=== PATIENT | female | born 1965 | race Caucasian/White ===

== ENCOUNTER 2021-04-20 11:43 | Emergency (ER) | payer OTHER, MEDICAID ==
[~2021-04-20] VITALS: Ht 165.1 cm; Wt 84.8 kg
[2021-04-20] MEDS ORDERED: TIZANIDINE HCL2 M1 PO (11:54)
[2021-04-20] MEDS ORDERED: DESYREL150 MG PO (11:54)
[2021-04-20] MEDS ORDERED: BENADRYL25 MG PO (11:55)
[2021-04-20] MEDS ORDERED: MEDICAL MARIJUANA (11:55)
[2021-04-20] MEDS ORDERED: CLARITIN10 M3 PO (11:55)
[2021-04-20 13:16] VITALS: BP 145/83
[2021-04-20 13:26] LABS: AMP/METHAMP Negative (Negative); BARBITURATES Negative (Negative); BENZODIAZEPINES Negative (Negative); COCAINE Negative (Negative); METHADONE Negative (Negative); OPIATES Negative (Negative); PCP Negative (Negative); THC POSITIVE (Negative)
== END 2021-04-20 13:16 | disposition left against medical advice (07) ==
LOC: M.ERS 11:43
PROVIDERS: Physician Assistant
DX: G89.29 Other chronic pain (principal); M54.5 Low back pain; M54.2 Cervicalgia